=== PATIENT | female | born 1950 | race Caucasian/White ===

== ENCOUNTER → 2017-04-02 | Outpatient (CLI) | payer MEDICARE, BC ==
--- NOTE | 2017-04-02 15:46 | RAD ---
DATE: 04/02/2017 EXAM: MAMMO ULICES SCREENING BILATERAL Bilateral digital screening mammography to include digital breast tomosynthesis (3D mammography) HISTORY: Screening study. COMPARISON: None. This study was interpreted with the benefit of Computerized Aided Detection (CAD). FINDINGS: Digital MLO and CC mammograms of both breasts were obtained. Additionally digital breast tomosynthesis (3D mammography) images of both breasts in the MLO and CC projections were performed. The patient's previous mammograms were performed in [place] over 17 years ago and are unavailable for comparison. The breast parenchyma is heterogeneously dense which can obscure a lesion on mammography (breast density code C). No spiculated mass is seen. No malignant appearing calcification or area of architectural distortion is noted. Benign-appearing calcifications within both breasts. Digital breast tomosynthesis images demonstrate no spiculated mass or malignant appearing calcification. IMPRESSION: BI-RADS Category 1, negative. There is no mammographic evidence of malignancy. Routine yearly screening mammography is recommended for follow-up. BI-RADS CATEGORY: 1 NEGATIVE RECOMMENDED FOLLOW-UP: 12M 12 MONTH FOLLOW-UP PQRS compliance statement: Patient information was entered into a reminder system with a target due date 04/02/2018 for the next mammogram. Mammography is a sensitive method for finding small breast cancers, but it does not detect them all and is not a substitute for careful clinical examination. A negative mammogram does not negate a clinically suspicious finding and should not result in delay in biopsying a clinically suspicious abnormality. "Our facility is accredited by the [employer] Mammography [employer]."
== END | disposition home or self-care (01) ==
LOC: EDBD 13:55 → MAMMO 13:55
PROVIDERS: ATTEND Nurse Practitioner Adult Health
DX: Z12.31 Encounter for screening mammogram for malignant neoplasm of breast (principal)
CPT/HCPCS: 77063; G0202; 77067

== ENCOUNTER → 2018-07-15 | Outpatient (CLI) | payer MEDICARE, BC ==
--- NOTE | 2018-07-15 16:36 | RAD ---
DATE: 07/15/2018 EXAM: DIGITAL SCREEN BILAT W/CAD HISTORY: Routine screening COMPARISON: 04/02/2017 screening exam This study was interpreted with the benefit of Computerized Aided Detection (CAD). Breast Density: SCATTERED The breast parenchyma shows scattered fibroglandular densities. Breast parenchyma level B. FINDINGS: A small focal asymmetry involves the right upper-outer breast 9.9 cm from the nipple. This finding measures 0.8 cm in diameter and may represent a lymph node. No suspicious calcification cluster. No dominant mass. No distortion. IMPRESSION: Right upper outer breast focal asymmetry which may represent a lymph node. Spot compression imaging and exaggerated right craniocaudal lateral views recommended. Ultrasound may be needed. Annual left screening mammography recommended. BI-RADS CATEGORY: 0 INCOMPLETE: NEEDS ADDITIONAL IMAGING EVALUATION AND/OR PRIOR MAMMOGRAMS FOR COMPARISON. RECOMMENDED FOLLOW-UP: ADD ADDITIONAL IMAGING PQRS compliance statement: Patient information was entered into a reminder system with a target due date immediately for the next mammogram. Mammography is a sensitive method for finding small breast cancers, but it does not detect them all and is not a substitute for careful clinical examination. A negative mammogram does not negate a clinically suspicious finding and should not result in delay in biopsying a clinically suspicious abnormality. "Our facility is accredited by the [employer] Mammography [employer]."
== END | disposition home or self-care (01) ==
LOC: MAMMO 13:16
PROVIDERS: ATTEND Nurse Practitioner Adult Health
DX: Z12.31 Encounter for screening mammogram for malignant neoplasm of breast (principal)
CPT/HCPCS: 77067

== ENCOUNTER → 2018-08-01 | Outpatient (CLI) | payer MEDICARE, BC ==
--- NOTE | 2018-08-01 09:56 | RAD ---
DATE: 08/01/2018 EXAM: DIGITAL DIAGNOSTIC RT, BREAST RIGHT HISTORY: Suspicious screening study COMPARISON: 07/15/2018 This study was interpreted with the benefit of Computerized Aided Detection (CAD). Breast Density: SCATTERED The breast parenchyma shows scattered fibroglandular densities. Breast parenchyma level B. FINDINGS: Additional views confirm the presence of a 8 mm nodule in the posterolateral aspect of the right breast in the 10-11:00 region. The exaggerated cc view demonstrates smooth margins. Right breast ultrasound, 08/01/2018: A targeted ultrasound exam of the upper outer quadrant of the right breast was performed. At the 10:00 location approximates 7 cm in the nipple there is a smooth oval-shaped hypoechoic nodule with an echogenic hilum. The appearance is that of a benign intramammary lymph node. This measures 7 x 4 x 3 mm. It probably corresponds to the mammographic finding. No other abnormality is seen in this region. IMPRESSION: Small benign-appearing intramammary lymph node. Routine yearly mammographic follow-up is suggested. BI-RADS CATEGORY: 2 BENIGN FINDING(S) RECOMMENDED FOLLOW-UP: 12M 12 MONTH FOLLOW-UP PQRS compliance statement: Patient information was entered into a reminder system with a target due date for the next mammogram. Mammography is a sensitive method for finding small breast cancers, but it does not detect them all and is not a substitute for careful clinical examination. A negative mammogram does not negate a clinically suspicious finding and should not result in delay in biopsying a clinically suspicious abnormality. "Our facility is accredited by the [employer] Mammography [employer]."
== END | disposition home or self-care (01) ==
LOC: MAMMO 08:36
PROVIDERS: ATTEND Family Medicine
DX: R92.8 Other abnormal and inconclusive findings on diagnostic imaging of breast (principal)
CPT/HCPCS: 76641; 77065

== ENCOUNTER → 2019-11-05 | Outpatient (CLI) | payer MEDICARE, BC ==
--- NOTE | 2019-11-06 13:42 | RAD ---
History: Routine screening. Technique: Bilateral digital mammographic routine views were obtained with CAD - computer aided detection. Comparison: 07/15/2018, right diagnostic mammogram 08/01/2018. Findings: Breast Tissue Density B :The breast tissue is composed of mixed fatty and fibroglandular tissue. In the left breast, there are no suspicious masses, microcalcifications or areas of architectural distortion. In the right breast, fine calcifications in the anterior lateral right breast need additional imaging with magnification views in the CC and true lateral projection with a full-field lateral view. Impression: Incomplete. Right breast needs additional imaging. BI-RADS Category 0: Incomplete: Need additional imaging evaluation. Recommend magnification views of the right breast and a full-field lateral view. A mammogram does not have 100% sensitivity and therefore a negative imaging study should not delay further work up of a suspicious abnormality. The patient will receive a letter with the results in the mail. Patient information is entered into the reminder system with a target due date for the next screening mammogram. The patient will receive a reminder. "Our facility is accredited by the [employer] Mammography [employer]." BI-RADS 0 -- incomplete assessment
== END ==
LOC: MAMMO 13:01
PROVIDERS: ATTEND Nurse Practitioner Adult Health
DX: Z12.31 Encounter for screening mammogram for malignant neoplasm of breast (principal)
CPT/HCPCS: 77067

== ENCOUNTER → 2019-11-13 | Outpatient (CLI) | payer MEDICARE, BC ==
--- NOTE | 2019-11-13 15:00 | RAD ---
CLINICAL INDICATION: LIBBY CARUSO, who is 68 years of age, presents for further evaluation of a finding noted on her most recent screening mammographic examination. On that examination indeterminate microcalcifications were reported within the right COMPARISON: Prior mammographic imaging dating back to 11/05/2019, 07/15/2018, 08/01/2018 TECHNIQUE: Diagnostic views of the right breast were obtained, utilizing digital technique. BREAST COMPOSITION: There are scattered fibroglandular densities. MAMMOGRAM FINDINGS: Calcifications in the right breast are again seen, somewhat linear appearance, possibly vascular. The visualized right axilla appears unremarkable. IMPRESSION: 1. Right breast probably benign microcalcifications for which follow up is recommended. RECOMMENDATION: In the absence of new clinical symptoms or change in physical exam, short term follow up diagnostic examination is recommended in 6 months to assess for interval stability. At that time, full-field ML and spot magnification CC and ML views can be obtained. BIRADS 3: PROBABLY BENIGN Electronically signed by: Faheem Hein MD (11/13/2019 2:57 PM) [id number]
== END | disposition home or self-care (01) ==
LOC: MAMMO 14:26
PROVIDERS: ATTEND Nurse Practitioner Adult Health
DX: R92.1 Mammographic calcification found on diagnostic imaging of breast (principal)
CPT/HCPCS: 77065

== ENCOUNTER → 2020-12-15 | Outpatient (CLI) | payer MEDICARE, BC ==
--- NOTE | 2020-12-16 09:17 | RAD ---
EXAM: Bilateral diagnostic mammogram. HISTORY: 70-year-old female presents for follow-up evaluation of right breast marked calcifications. The patient is due for bilateral mammography. TECHNIQUE: Full-field digital craniocaudal and mediolateral oblique views of both breasts are obtaine d for evaluation. Spot magnification views of the right breast are also obtained. Computer aided dete ction was applied. COMPARISON: 11/13/2019, 11/05/2019, 08/01/2018, 04/02/2017 BREAST PARENCHYMAL DENSITY: Level B - Scattered fibroglandular densities. FINDINGS: There are segmental and loosely clustered calcifications within the lateral right breast fr om anterior to mid depth at approximately the 9:00 to 8:00 positions. Several these calcifications de monstrate benign round morphology and are stable compared to the prior studies. However, there are a few calcifications with slight heterogeneous morphology which are not clearly benign vascular or fibr ocystic type calcifications. No associated mass or distortion is seen. IMPRESSION: 1. Segmental and loosely clustered calcifications within the lateral anterior to mid right breast, th e distribution and morphology of which is not clearly benign. Stereotactic guided biopsy of the large st cluster of these calcifications is recommended for definitive diagnosis. 2. BI-RADS Category 4: Suspicious abnormality. Biopsy is recommended. These findings and recommendations were communicated to the voicemail of Quentin, the nurse for the anaya alva physician, as well as the patient. If your mammogram demonstrates that you have dense breast tissue, which could hide abnormalities, and if you have other risk factors for breast cancer that have been identified, you might benefit from s upplemental screening tests that may be suggested by your ordering physician. Dense breast tissue, i n and of itself, is a relatively common condition. This information is not provided to cause undue c oncern, but rather to raise your awareness and to promote discussion with your physician regarding th e presence of other risk factors, in addition to dense breast tissue. A report of your mammography re sults will be sent to you and your physician. You should contact your physician if you have any ques tions or concerns regarding this report. Mammography is a sensitive method for finding small breast cancers, but it does not detect them all a nd is not a substitute for careful clinical examination. A negative mammogram does not negate a clin ically suspicious finding and should not result in delay in biopsying a clinically suspicious abnorma lity. PQRS compliance statement - Patient information was entered into a reminder system with a target due date for the next mammogram. "Our facility is accredited by the [employer] Mammography [employer]." Electronically signed by: Agnes rTent MD (12/16/2020 9:14 AM) [id number]
== END ==
LOC: MAMMO 14:13
PROVIDERS: ATTEND Family Medicine
DX: R92.1 Mammographic calcification found on diagnostic imaging of breast (principal)
CPT/HCPCS: 77066

== ENCOUNTER → 2021-10-02 | Outpatient (CLI) | payer MEDICARE, BC ==
--- NOTE | 2021-10-02 14:17 | RAD ---
EXAM: Neck sonogram. HISTORY: Palpable lump. TECHNIQUE: Sonographic imaging of the neck at the site of palpable concern was performed. COMPARISON: None. FINDINGS: There is no suspicious sonographic finding within the anterior right neck at the midline an d within the right submandibular location. No mass, fluid collection or lymphadenopathy is seen. IMPRESSION: Unremarkable sonographic imaging of the neck at the site of concern. Cross-sectional imag ing can be performed if there is concern for sonographically occult lesion. Electronically signed by: Agnes Trent MD (10/02/2021 2:15 PM) [id number]
== END ==
LOC: US 12:50
PROVIDERS: ATTEND Nurse Practitioner Adult Health
DX: R22.1 Localized swelling, mass and lump, neck (principal)
CPT/HCPCS: 76536

== ENCOUNTER → 2021-10-04 | Outpatient (CLI) | payer MEDICARE, BC ==
--- NOTE | 2021-10-04 11:26 | RAD ---
EXAM: DUAL ENERGY X-RAY ABSORPTIOMETRY (DEXA). HISTORY: Postmenopausal screening. FINDINGS: The lowest measured T-score is a 3.4 in the right hip, based on a bone mineral density of 0 .512 g/cm^2. Refer to the worksheets for full detail. No comparison examinations are available. IMPRESSION: 1. Osteoporosis. Bone mineral density yields a T-score of -2.5 or less. Fracture risk is high. 2. FRAX report: Not calculated. METHODOLOGY: Dual energy x-ray absorptiometry was performed to measure bone mineral density. The foll owing analysis is based on the 2019 Official Positions of the International Society for Clinical Dens itometry: Measurements of the hips and the average of L1-L4 are preferred. When the spine and/or hip cannot be feasibly measured or interpreted, or in the setting of hyperparathyroidism, distal radial bone minera l density may be measured. The lumbar spine T-score is based on the average bone mineral density of L1-L4. In the setting of art ifact or anatomic abnormality, some lumbar levels may be excluded, and the remaining levels used for calculation. A single lumbar level is not used for diagnosis, and if only a single level is available for assessment, another anatomic site will be used to assign a diagnosis. The hip T-score is based on the bone mineral density measurement of the femoral neck or total proxima l femur of either side, whichever is lowest. Bilateral mean values are not used for diagnosis. The forearm T-score is derived from 33% of the distal radius of the nondominant forearm. Electronically signed by: Agnes Trent MD (10/04/2021 11:24 AM) [id number]
== END ==
LOC: DXRAD 10:17
PROVIDERS: ATTEND Nurse Practitioner Adult Health
DX: M81.0 Age-related osteoporosis without current pathological fracture (principal)
CPT/HCPCS: 77080